=== PATIENT | female | born 2000 | race Two or more races ===

== ENCOUNTER 2021-08-25 11:25 | Emergency (ER) | payer OTHER ==
[~2021-08-25] VITALS: Ht 152.4 cm; Wt 56.7 kg
--- NOTE | 2021-08-25 11:45 | NUR ---
THE PATIENT BIBS FOR VAGINAL BLEEDING X 3 WEEKS. DENIES PAIN. WILL CONTINUE TO MONITOR THE PATIENT.
[2021-08-25 13:47] LABS: BASOPHILS % (AUTO) 0.4 % (0.0-2.0); EOSINOPHILS % (AUTO) 0.9 % (0.0-6.0); HEMATOCRIT 42 % (33-45); HEMOGLOBIN 13.9 g/dL (11.5-14.8); LYMPHOCYTES # (AUTO) 1.7 K/uL (0.8-4.8); LYMPHOCYTES % (AUTO) 25.4 % (20.0-44.0); MEAN CORPUSCULAR HGB CONC 34 g/dl (31.0-36.0); MEAN CORPUSCULAR VOLUME 85 fL (82-100); MONOCYTES # (AUTO) 0.4 K/uL (0.1-1.30); MONOCYTES % (AUTO) 5.5 % (2.0-12.0); NEUTROPHILS # (AUTO) 4.7 K/uL (1.8-8.9); NEUTROPHILS % (AUTO) 67.8 % (43.0-81.0); PLATELET COUNT (AUTO) 279 K/uL (150-450); RED BLOOD CELL COUNT(AUTO) 4.93 MIL/uL (4.0-5.2); WHITE BLOOD COUNT (AUTO) 6.9 K/uL (4.3-11.0)
[2021-08-25] MEDS ORDERED: medroxyPROGESTERone ACET 5 MG TABLET PO SCH (14:00)
[2021-08-25 14:01] LABS: CALCIUM, SERUM 9.2 mg/dL (8.5-10.1); CREATININE 0.8 mg/dL (0.6-1.3); POTASSIUM 4.3 mmol/L (3.5-5.1)
[2021-08-25] MEDS ORDERED: MEDR10TA10 PO ×2 (14:04)
[2021-08-25] MEDS ORDERED: INSULIN REGULAR, HUMAN 100 UNIT/ML 10 ML VIAL ONE (14:17)
[2021-08-25] MEDS ORDERED: INSULIN LISPRO/ASPART 100 UNIT/ML CARTRIDGE SQ SCH (14:30)
--- NOTE | 2021-08-25 14:46 | NUR ---
PROVERA 10 MG PO OK TO GIVE PER DR ÁLVAREZ.
[2021-08-25 14:56] LABS: BILIRUBIN,URINE NEGATIVE (NEGATIVE); COLOR,URINE YELLOW (YELLOW); LEUKOCYTE ESTERASE ,URINE NEGATIVE (NEGATIVE); NITRITE, URINE NEGATIVE (NEGATIVE); PROTEIN,URINE NEGATIVE (NEGATIVE); UGLUCOSE >=1000 mg/dL (NEGATIVE); UROBILINOGEN,URINE 0.2 EU/dL (0.2)
--- NOTE | 2021-08-25 15:08 | NUR ---
CCUCHECK READING IS 297. DR ÁLVAREZ AWARE AND PER MD OK TO DISCHARGE THE PATIENT.
[2021-08-25 15:16] VITALS: BP 117/64
--- NOTE | 2021-08-25 15:16 | NUR ---
Patient discharged to home in stable condition. Written and verbal after care instructions given. Patient verbalizes understanding of instruction.
[2021-08-25 15:39] LABS: RBC,URINE TOO NUMEROUS TO COUN /HPF (0-2)
[2021-08-25 15:42] LABS: BACTERIA,URINE None seen /HPF (None Seen); SQUAMOUS EPITHELIAL CELL,UR Few /HPF (None Seen); TRICHOMONAS,URINE Present /HPF (None Seen)
== END 2021-08-25 15:16 | disposition home or self-care (01) ==
LOC: ER 11:29
DX: N93.9 Abnormal uterine and vaginal bleeding, unspecified (principal); E11.9 Type 2 diabetes mellitus without complications; Z60.2 Problems related to living alone; Z79.899 Other long term (current) drug therapy
CPT/HCPCS: 36415; 80048; 81001; 82962; 84702; 85025; 87086; 96372; 99283; A6403; J1815 ×2